=== PATIENT | female | born 1940 | race Caucasian/White ===

== ENCOUNTER 2016-12-17 15:56 | Inpatient (IN) ==
[2016-12-17] MEDS ORDERED: FUROSEMIDE 100 MG/10 ML VIAL IV STA (17:00)
[2016-12-17] MEDS ORDERED: methylPREDNISolone SOD SUC 125 MG/2 ML VIAL IV STA (17:00)
[2016-12-17] MEDS ORDERED: ALBUTEROL 2.5 MG/3 ML NEB RESP TX SCH (17:00)
--- NOTE | 2016-12-17 17:07 | Emergency Department Note ---
Norma Quintanilla Kasabria, am scribing for, and in the presence of, Jesse Mark MD 17:06. Jas Quintanilla Charles R, MD, personally performed the services described in this documentation, ascribed by Michelle Green in my presence, and it is both accurate and complete 707 . Arrival - Arrival Chief Complaint: Upper Respiratory Stated Complaint: breathing problem ED Nursing Triage Note: cough and congestion onset x 6 months Mode of Arrival: Ambulatory Limitations: No Limitations Source: Patient Time Seen by Provider: 12/17/16 16:51 - History of Present Illness HPI Narrative: This is a 76 y/o white female presenting to the ED with c/o cough, congestion, and SOB with exertion that onset with in the last few days. She states when she is laying flat at night she has to use pillows, pt is urinating more frequently , coughing makes her chest hurt, and auditory wheezing. She does not know if she has sleep apnea and is unaware of heart issues. She denies fever, chills, nausea, vomiting, diarrhea, abdominal pain, dysuria, and vision change. Consistency: constant Severity: moderate Date of Last Menstrual Period: hyster Allergies/Adverse Reactions: Allergies Allergy/AdvReac Type Severity Reaction Status Date / Time ciprofloxacin [From Cipro] Allergy RASH Verified 12/17/16 16:24 Home Medications: Home Medications Medication Instructions Recorded Confirmed Type Atorvastatin [Lipitor] 40 mg PO BEDTIME 12/17/16 12/17/16 History Levothyroxine Tab [Synthroid Tab] 75 mcg PO DAILY@0700 12/17/16 12/17/16 History Metoprolol Succinate Xl [Toprol Xl] 50 mg PO DAILY 12/17/16 12/17/16 History Omeprazole [Omeprazole] 20 mg PO DAILY 12/17/16 12/17/16 History Sertraline HCl [Sertraline HCl] 75 mg PO DAILY 12/17/16 12/17/16 History cloNIDine HCl [Clonidine HCl] 0.1 mg PO DAILY 12/17/16 12/17/16 History Review of System - Review of System 12 point system: reviewed and no additional remarkable complaints except as stated - Review of System Constitutional: Absent: chills, fever, weakness Eyes: Absent: vision change Head/Ears/Nose/Throat: Absent: nasal drainage Respiratory: Present: cough, wheezing Cardiovascular: Present: chest pain (after coughing ), dyspnea on exertion Gastrointestinal: Absent: abdominal pain, nausea, vomiting, diarrhea Genitourinary female: Present: frequency (at night she is using the bathroom more than usual ). Absent: dysuria Musculoskeletal: Absent: arm pain, back pain, leg pain, neck pain Skin: Absent: rash Neurological: Absent: headache, weakness, confusion, vertigo Psychiatric: Absent: anxiety Endocrine: Absent: fatigue Hematological/Lymphatic: Absent: easy bleeding Allergic/Immunologic: Absent: facial swelling Medical,Surgical,& Family Hx - Medical History Cardio: History of: Hypertension Gastrointestinal: History of: GERD - Social History Smoking Status: Never smoker Frequency of Alcohol Use: None Type of Drug Use: None Exam Vital Signs: Vital Signs Temperature 97.5 F L 12/17/16 16:47 Pulse Rate 106 H 12/17/16 18:45 Respiratory Rate 20 12/17/16 18:45 Blood Pressure 176/73 12/17/16 18:45 O2 Sat by Pulse Oximetry 95 12/17/16 18:45 - General General appearance: alert, in no apparent distress - Head Head exam: Present: atraumatic, normocephalic, normal inspection - Eye Eye exam: Present: normal appearance, PERRL, EOMI - ENT ENT exam: Present: normal exam, normal oropharynx, mucous membranes moist, TM's normal bilaterally, normal external ear exam - Neck Neck exam: Present: normal inspection, full ROM, trachea midline. Absent: tenderness - Chest Chest inspection: Present: normal inspection, symmetric chest wall rise. Absent : tenderness - Respiratory Respiratory exam: Present: rales (at the base ), wheezes (bilaterally ). Absent : normal lung sounds bilaterally - Cardiovascular Cardiovascular exam: Present: regular rate, normal rhythm, normal heart sounds - Abdominal Exam Abdominal exam: Present: soft, normal bowel sounds. Absent: distention, tenderness - Extremities Exam Extremities exam: Present: full ROM, normal capillary refill, pedal edema (+1 edema BLE ). Absent: normal inspection, tenderness, calf tenderness - Back Exam Back exam: Present: normal inspection, full ROM. Absent: tenderness - Neurological Exam Neurological exam: Present: alert, oriented X3, CN II-XII intact, normal gait, reflexes normal - Psychiatric Psychiatric exam: Present: normal affect, normal mood - Skin Skin exam: Present: warm, dry, intact, normal color. Absent: rash, diaphoresis Course - Reevaluation(s) Reevaluation #1: Patient feels much better. She still wheezing. CT scan showed no PE but COPD like picture Time: 19:58 - Consultations Consultation #1: Dr Maldonado will admit for Dr Mobley Time: 19:58 Results - Labs CBC & BMP: 12/17/16 17:00 12/17/16 17:00 Lab Results: I have reviewed the patients labs Disposition Clinical Impression: Upper respiratory infection, Bronchitis, Bronchospasm Case discussed with: patient, patient's family Disposition: Still a Patient Condition: Stable Time of Disposition: 19:59
[2016-12-17 17:12] LABS: Basophils # 0.1 10*3/uL (0.0-0.2); Basophils % 0.6 % (0.0-0.8); Eosinophils # 0.2 10*3/uL (0.0-0.87); Eosinophils % 2.8 % (0.00-10.9); Hematocrit 37.9 VOL% (35.7-47.0); Hemoglobin 12.3 GM/DL (12.0-16.0); Immature Granulocytes % 0.2 %; Immature Granulocytes Absolute 0.02 #; Lymphocytes # 2.2 10*3/uL (1.4-4.0); Lymphocytes % 25.6 % (21.3-54.2); Mean Corpuscular HGB Conc 32.5 GM/DL (32-36); Mean Corpuscular Hemoglobin 29 PG (27-34); Mean Corpuscular Volume 90.5 FL (87-102); Mean Platelet Volume 9.8 FL (9.6-12.0); Monocytes # 0.5 10*3/uL (0.11-0.8); Neutrophils # 5.5 10*3/uL (1.4-7.4); Neutrophils % 64.8 % (38.7-73.9); Platelet Count 250 T/CUMM (130-400); Red Blood Count 4.19 MC/CUMM (3.8-5.5); Red Cell Distribution Width 13.2 % (9.3-17.3); White Blood Count 8.5 T/CUMM (4-12)
[2016-12-17] MEDS ORDERED: methylPREDNISolone SOD SUC 125 MG/2 ML VIAL ONE (17:15)
[2016-12-17] MEDS ORDERED: FUROSEMIDE 100 MG/10 ML VIAL ONE (17:15)
[2016-12-17 17:23] LABS: D-Dimer 0.8 MG/L FEU; PT Patient Result 10.6 SECS
[2016-12-17 17:32] LABS: Apearance,Urine CLEAR (Clear); Bacteria,Urine Occasional /HPF (Few); Bilirubin,Urine Negative (Negative); Blood, Urine Negative (Negative); Glucose,Urine (UA) Negative (Negative); Ketones,Urine 5 mg/dL (Negative); Mucus,Urine Occasional /LPF (Occasional); Nitrite,Urine Negative (Negative); Protein,Urine Negative; RBC,Urine <1 /HPF (0-4); Squamous Epithelial Cell,Urine Occasional /HPF (0-10); Urine Color Yellow (Yellow); Urine Urobilinogen < 2.0 EU/DL (0.2-1.0); WBC,Urine 2 /HPF (0-6)
[2016-12-17 17:38] LABS: Alanine Aminotransferase 32 U/L (13-56); Albumin 3.9 G/DL (3.4-5.0); Alkaline Phosphatase 94 U/L (45-117); Aspartate Amino Transferase 27 U/L (0-37); Blood Urea Nitrogen 17 MG/DL (7-18); Calcium 9.6 MG/DL (8.5-10.1); Glucose 87 MG/DL (74-106); Magnesium 2.4 MG/DL (1.8-2.4); Osmolality,Calculated 277.5 MOS/KG (273-304); Potassium 4.1 MMOL/L (3.5-5.1); Sodium 139 MMOL/L (136-145); Total Protein 7.6 G/DL (6.4-8.3); Troponin I Only < 0.015 NG/ML (0.00-0.045)
--- NOTE | 2016-12-17 17:40 | EKG Report ---
Stationary ECG Study [facility] ER Test Date: 12/17/2016 5:39 PM Pat Name: JAMI ROSA Department: Room: 239 Gender: F Application Administrator: PRINCE : 1940 Requested by: Jesse Marcelo Order Number: [id number] Reading MD: JHOAN MIRANDA Intervals [place] Rate: 69 P: 59 MA: 142 QRS: -19 QRSD: 87 T: 1 QT: 402 QTc: 422 Interpretive Statements SINUS RHYTHM MINIMAL Electronically Signed On 12-21-16 12:00:41 CDT by JHOAN MIRANDA [email or web address]
--- NOTE | 2016-12-17 18:57 | CT Report ---
Exam: CT chest with contrast, PE study Date: 12/17/2016 Comparison: None Reason: Shortness of breath Technique: Axial images of the chest were obtained after administration of 80 cc of IV Omnipaque 350 intravenous contrast. Coronal reformatted images were also acquired. The study was performed per pulmonary embolism protocol. Total DLP: 233.90 Findings: There is no evidence of pulmonary embolism through the segmental pulmonary arteries. The heart is normal in size with cardiac fat pads and coronary artery calcifications. No evidence of aortic dissection with diffuse arterial calcifications. No chest lymphadenopathy is identified. 51 mm hiatal hernia. Degenerative changes are noted. The lungs are hyperexpanded with probable minimal chronic scarring. Minimal atelectasis especially in the lingula. Impression: No evidence of pulmonary embolism. The lungs are over expanded which can be seen with COPD or reactive airway disease with probable minimal chronic scarring and atelectasis. Cardiac fat pads with coronary artery calcifications. 51 mm hiatal hernia. This CT exam was performed using one or more the following dose reduction techniques: Automated exposure control, adjustment of the MA and/or KV according to patient size, or use of iterative reconstruction technique. PROCEDURE INTERPRETED AT [facility] DEPARTMENT OF RADIOLOGY Final Report Signed by: Dr. Mary Miller
[2016-12-17] MEDS ORDERED: cefTRIAXone 1,000 MG in SODIUM CHLORIDE 0.9% 100 ML IV STA (19:59)
[2016-12-17] MEDS ORDERED: cefTRIAXone 1,000 MG VIAL ONE (20:06)
[2016-12-17] MEDS ORDERED: ONDANSETRON 4 MG/2 ML VIAL IV PRN (21:28)
[2016-12-17] MEDS ORDERED: ACETAMINOPHEN 325 MG TABLET PO PRN (21:28)
[2016-12-17] MEDS ORDERED: ALBUTEROL/IPRATROPIUM 3 ML NEB RESP TX PRN (21:28)
[2016-12-17] MEDS ORDERED: MORPHINE 2 MG/1 ML SYRINGE IV PRN (21:28)
[2016-12-17] MEDS: DOCUSATE SODIUM 100 MG CAPSULE PO SCH (22:52)
[2016-12-18] MEDS: ATORVASTATIN 40 MG TABLET PO SCH ×2 (01:47→20:36)
[2016-12-18] MEDS: methylPREDNISolone SOD SUC 40 MG/1 ML VIAL IV SCH ×2 (01:48→10:21)
[2016-12-18] MEDS: SODIUM CHLORIDE 0.9% 1,000 ML IV SCH ×2 (01:48→16:26)
[2016-12-18 03:40] LABS: Basophils % 0.2 % (0.0-0.8); Hematocrit 35.8 VOL% (35.7-47.0); Hemoglobin 11.9 GM/DL (12.0-16.0); Immature Granulocytes % 0.6 %; Immature Granulocytes Absolute 0.03 #; Lymphocytes # 0.5 10*3/uL (1.4-4.0); Lymphocytes % 10.7 % (21.3-54.2); Mean Corpuscular HGB Conc 33.2 GM/DL (32-36); Mean Corpuscular Hemoglobin 29 PG (27-34); Mean Corpuscular Volume 87.3 FL (87-102); Mean Platelet Volume 10.1 FL (9.6-12.0); Monocytes # 0.1 10*3/uL (0.11-0.8); Neutrophils # 4.4 10*3/uL (1.4-7.4); Neutrophils % 87.5 % (38.7-73.9); Platelet Count 236 T/CUMM (130-400); Red Cell Distribution Width 13.3 % (9.3-17.3); White Blood Count 5.1 T/CUMM (4-12)
[2016-12-18 04:13] LABS: Albumin 3.8 G/DL (3.4-5.0); Bilirubin,Total 1.2 MG/DL (0.2-1.0); Calcium 9.2 MG/DL (8.5-10.1); Magnesium 2.3 MG/DL (1.8-2.4); Osmolality,Calculated 287.3 MOS/KG (273-304); Potassium 4.3 MMOL/L (3.5-5.1); Total Protein 6.8 G/DL (6.4-8.3)
[2016-12-18] MEDS: LEVOTHYROXINE 75 MCG TABLET PO SCH (06:20)
--- NOTE | 2016-12-18 07:26 | XRay Report ---
XR chest 2V Indication: Shortness of breath Comparison: 09 December 2012 Findings: The heart and mediastinum are normal in size and configuration. The pulmonary vascularity is normal in caliber. Lung volumes are increased with prominent bronchial markings. No lung infiltrates, effusions, pneumothorax or other abnormality is demonstrated. Impression: Chronic lung changes. No acute process or significant change. PROCEDURE INTERPRETED AT [facility] DEPARTMENT OF RADIOLOGY Final Report Signed by: Dr. Jamar Baltazar
--- NOTE | 2016-12-18 08:26 | Pulmonology Consult Note ---
Assessment and Plan (1) Acute bronchitis Status: Acute Assessment and plan: She has had a cough that is going on for little over 2 weeks. I am concerned that it may be aggravated by reflux or microaspiration. Will treat with low- dose steroids and bronchodilators as well as antibiotics. Should have EGD at some point. Current Visit: Yes (2) Hiatal hernia Status: Acute Assessment and plan: Has a good bit of problems with difficulty swallowing and with heartburn. May be having microaspiration. When her bronchospasm is improved she should have EGD to evaluate. Current Visit: Yes (3) Gastroesophageal reflux disease Status: Acute Assessment and plan: Patient is on Prilosec. Would keep her on something of that nature for now and have GI to see. Current Visit: Yes (4) Hypothyroidism Status: Acute Assessment and plan: Continuing Synthroid. Check TSH. Current Visit: Yes (5) Hypertension, essential Status: Acute Assessment and plan: Blood pressure well controlled on current medications. She is on a beta- timothy. Current Visit: Yes History of Present Illness Chief complaint: Cough, congestion, difficulty swallowing History of present illness: Ms. Del Real is a 76 year old female who smoked until she was 29 years old but has been off cigarettes now for 47 years. She does not have any history of chronic lung problems. She has over the last couple weeks had a cough and congestion and it got worse overnight. She went to the emergency room and was admitted. She is short of breath with exertion which is gotten worse the last few days as well. She has a good bit of problem with indigestion and has some difficulty swallowing. She feels like pills get caught up in her esophagus. She had a CT of the chest yesterday that showed a hiatal hernia. Her lungs were clear no evidence of a pulmonary embolus. She has not had any sinus symptoms. She has had no hemoptysis. Home Medications Medication Instructions Recorded Confirmed Type Atorvastatin [Lipitor] 40 mg PO BEDTIME 12/17/16 12/17/16 History Levothyroxine Tab [Synthroid Tab] 75 mcg PO DAILY@0700 12/17/16 12/17/16 History Metoprolol Succinate Xl [Toprol Xl] 50 mg PO DAILY 12/17/16 12/17/16 History Omeprazole [Omeprazole] 20 mg PO DAILY 12/17/16 12/17/16 History Sertraline HCl [Sertraline HCl] 75 mg PO DAILY 12/17/16 12/17/16 History cloNIDine HCl [Clonidine HCl] 0.1 mg PO DAILY 12/17/16 12/17/16 History Allergies Allergy/AdvReac Type Severity Reaction Status Date / Time ciprofloxacin [From Cipro] Allergy RASH Verified 12/17/16 16:24 12 point system: reviewed and no additional remarkable complaints except as stated - Cardiovascular Cardiovascular: Present: dyspnea on exertion - Respiratory Respiratory: Present: cough, dyspnea on exertion, wheezing - Gastrointestinal Gastrointestinal: Present: dyspepsia, dysphagia - Genitourinary Genitourinary: Present: urinary frequency Exam (Pulmonay) H&P - Constitutional Vitals: Period Temp Pulse Resp BP Sys/Bentley Pulse Ox Last 24 Hr 97.5 F-98.8 F 70-85 18-20 146-181/68-74 96-100 Exam: She is alert and oriented. Vital signs normal. Pupils react to light. Throat is clear. Neck supple no bruits. Chest reveals expiratory wheezing but she is not tight. Heart normal rate and rhythm no murmurs no rubs no gallops. Abdomen soft nontender no masses. Bowel sounds present. Extremities no clubbing cyanosis or edema. Calves nontender. Medical,Surgical,& Family Hx - Medical History Cardio: History of: Hypertension Gastrointestinal: History of: GERD - Surgical History Abdominal Surgeries: Surgical HX of: EGD (not sure when it was Dr. Mobley has records) - Family History Family History: Reports;: Family Cancer (grandmother), Family Diabetes ( mulitple member such as aunts), Family Heart Disease (father) Denies;: Family Anesthesia Reaction, Family Hematology, Family Hypertension, Family Psychiatric Problems, Family Stroke, Additional Family History - Social History Smoking Status: Never smoker Frequency of Alcohol Use: None Type of Drug Use: None Results - Labs CBC & BMP: 12/18/16 03:03 12/18/16 03:03 Lab Results: I have reviewed the past 24 hour labs - Diagnostic Findings Procedure: Chest x-ray: image reviewed by me (Chest x-ray is within normal limits.), CT - chest: image reviewed by me (Within normal limits except for large hiatal hernia)
[2016-12-18 09:06] LABS: Free T4 (Free Thyroxine) 1.3 NG/DL (0.76-1.46); Thyroid Stimulating Hormone 0.073 uIU/ml (0.358-3.74)
[2016-12-18] MEDS: cloNIDine 0.1 MG TABLET PO SCH (10:17)
[2016-12-18] MEDS: SERTRALINE 50 MG TABLET PO SCH (10:17)
[2016-12-18] MEDS: DOCUSATE SODIUM 100 MG CAPSULE PO SCH ×2 (10:17→20:36)
[2016-12-18] MEDS: PANTOPRAZOLE 40 MG TABLET PO SCH (10:19)
[2016-12-18] MEDS: METOPROLOL SUCCINATE XL 50 MG TABLET PO SCH (10:21)
[2016-12-18] MEDS: PANTOPRAZOLE 40 MG VIAL IV SCH (10:57)
--- NOTE | 2016-12-18 14:37 | Family Practice History&Phys ---
Assessment and Plan (1) Acute bronchitis Status: Acute Assessment and plan: We will admit and after appropriate cultures will start on empiric antibiotics, steroids, and respiratory treatments. This may be secondary to esophageal reflux with microaspiration. Current Visit: Yes (2) Bronchospasm Status: Acute Assessment and plan: We will start on appropriate respiratory treatments and IV steroids Current Visit: Yes (3) Probable esophageal stricture Status: Acute Assessment and plan: We will start on protein pump inhibitor and consult GI. Patient possibly had microaspiration and will probably need an EGD Current Visit: Yes (4) Gastroesophageal reflux disease Status: Chronic Assessment and plan: We will start on protein pump inhibitors and elevate head of bed Current Visit: Yes (5) Hypertension, essential Status: Chronic Assessment and plan: We will resume home medications Current Visit: Yes (6) Hypothyroidism Status: Chronic Assessment and plan: Stable at present we will resume home medications Current Visit: Yes History of Present Illness Chief complaint: Cough and shortness of breath History of present illness: Ms. Del Real is a 76 year old female Patient is a 76-year-old white female well known to me who was admitted to the emergency room with a 2 week history of progressive nonproductive cough and shortness of breath. Symptoms have progressively gotten worse. Patient is having to sleep on 2 pillows at night in order to breathe. Patient states that she has had problems with swallowing and food hanging in her lower esophagus over the last 2-3 weeks. Thinks she had a esophageal stricture in the past. No history of any pulmonary disease. No previous similar history of respiratory problem. Patient was seen in the emergency room and noted to have significant wheezing in the lung avila bilaterally. Chest x-ray was unremarkable. CT scan of the chest was also unremarkable no signs of pulmonary embolus. In view of degree of symptoms she was admitted for further evaluation and therapy Home Medications Medication Instructions Recorded Confirmed Type Atorvastatin [Lipitor] 40 mg PO BEDTIME 12/17/16 12/17/16 History Levothyroxine Tab [Synthroid Tab] 75 mcg PO DAILY@0700 12/17/16 12/17/16 History Metoprolol Succinate Xl [Toprol Xl] 50 mg PO DAILY 12/17/16 12/17/16 History Omeprazole [Omeprazole] 20 mg PO DAILY 12/17/16 12/17/16 History Sertraline HCl [Sertraline HCl] 75 mg PO DAILY 12/17/16 12/17/16 History cloNIDine HCl [Clonidine HCl] 0.1 mg PO DAILY 12/17/16 12/17/16 History Allergies Allergy/AdvReac Type Severity Reaction Status Date / Time ciprofloxacin [From Cipro] Allergy RASH Verified 12/17/16 16:24 Medical,Surgical,& Family Hx - Medical History Cardio: History of: Hypertension Endocrine: History of: Dyslipidemia, Thyroid Disorder (Hypothyroidism) Gastrointestinal: History of: GERD - Surgical History Abdominal Surgeries: Surgical HX of: EGD (not sure when it was Dr. Mobley has records) - Family History Family History: Reports;: Family Cancer (grandmother), Family Diabetes ( mulitple member such as aunts), Family Heart Disease (father) Denies;: Family Anesthesia Reaction, Family Hematology, Family Hypertension, Family Psychiatric Problems, Family Stroke, Additional Family History - Social History Smoking Status: Never smoker Frequency of Alcohol Use: None Type of Drug Use: None Marital Status: Lives With:: Spouse Functional capacity: independent ambulation Exam - Constitutional Vitals: Period Temp Pulse Resp BP Sys/Bentley Pulse Ox Last 24 Hr 97.5 F-98.8 F 70-85 18-20 116-181/63-74 92-100 General appearance: mild distress - Head Head exam: Present: normal inspection - Eye Pupils: Present: TATYANA - ENT ENT exam: Present: normal exam - Neck Neck exam: Present: normal inspection - Respiratory Respiratory exam: Present: wheezes (Patient has diffuse wheezing in bases bilaterally) - Cardiovascular Cardiovascular exam: Present: regular rate and rhythm - GI/Abdominal GI/Abdominal exam: Present: normal bowel sounds, soft - Extremities Exam Extremities exam: Present: normal inspection - Back Exam Back exam: Present: normal inspection - Neurological Exam Neurological exam: Present: alert, oriented X3 - Psychiatric Psychiatric exam: Present: normal affect - Skin Skin exam: Present: normal color Results - Labs CBC & BMP: 12/18/16 03:03 12/18/16 03:03
[2016-12-18] MEDS: methylPREDNISolone SOD SUC 125 MG/2 ML VIAL IV SCH ×2 (16:22→21:33)
[2016-12-19 02:54] LABS: Basophils % 0.1 % (0.0-0.8); Hemoglobin 11.3 GM/DL (12.0-16.0); Immature Granulocytes % 0.8 %; Immature Granulocytes Absolute 0.09 #; Lymphocytes # 0.7 10*3/uL (1.4-4.0); Mean Corpuscular HGB Conc 33.2 GM/DL (32-36); Mean Corpuscular Hemoglobin 30 PG (27-34); Mean Corpuscular Volume 89.5 FL (87-102); Mean Platelet Volume 10.4 FL (9.6-12.0); Monocytes # 0.1 10*3/uL (0.11-0.8); Monocytes % 0.7 % (1.7-12.7); Neutrophils # 10.8 10*3/uL (1.4-7.4); Neutrophils % 92.4 % (38.7-73.9); Platelet Count 229 T/CUMM (130-400); Red Cell Distribution Width 13.5 % (9.3-17.3); White Blood Count 11.7 T/CUMM (4-12)
[2016-12-19 03:27] LABS: Calcium 8.7 MG/DL (8.5-10.1); Free T4 (Free Thyroxine) 1.16 NG/DL (0.76-1.46); Osmolality,Calculated 291.3 MOS/KG (273-304); Potassium 4.4 MMOL/L (3.5-5.1); Thyroid Stimulating Hormone 0.038 uIU/ml (0.358-3.74)
[2016-12-19 03:45] LABS: Lymphocytes 8 % (20-55); Platelet Estimate Normal; Segmented Neutrophils 92 % (50-85); Total Cells Counted 100
[2016-12-19] MEDS: methylPREDNISolone SOD SUC 125 MG/2 ML VIAL IV SCH ×3 (06:32→23:17)
[2016-12-19] MEDS: SODIUM CHLORIDE 0.9% 1,000 ML IV SCH ×2 (06:32→19:10)
[2016-12-19] MEDS: LEVOTHYROXINE 75 MCG TABLET PO SCH (06:33)
[2016-12-19] MEDS: ALBUTEROL/IPRATROPIUM 3 ML NEB RESP TX SCH ×3 (07:24→20:34)
--- NOTE | 2016-12-19 07:55 | Family Practice Progress Note ---
Family Practice - PN: Subj Interval history: Patient came in with bronchitis and wheezing, on 12/17/2016. She is still having significant wheezing at this time although she is alert and oriented is able to talk to me and is in no acute respiratory distress. Oxygen sats this morning are 93%. Her weight is stable since admit. We did do a CBC which was grossly normal and a chemistry which was normal as well except for slight elevation of BUN. Patient does have paroxysmal bronchospasms but again is in no respiratory distress. I am going to increase her duo nebs to every 6 hours and as needed. Will change steroid dosing accordingly Exam (Progress Note) - Constitutional Vitals: Period Temp Pulse Resp BP Sys/Bentley Pulse Ox Last 24 Hr 98.1 F-99.2 F 64-82 18-20 116-181/62-90 92-95 Results - Labs CBC & BMP: 12/19/16 02:32 12/19/16 02:32
--- NOTE | 2016-12-19 08:51 | Gastrointestinal Consult Note ---
Assessment and Plan - Time spent with patient Time spent with patient: Greater than 30 minutes (1) Dysphagia Status: Acute Current Visit: Yes (2) Other specified counseling Status: Acute Current Visit: Yes History of Present Illness History of present illness: Ms. Del Real is a 76 year old female Home Medications Medication Instructions Recorded Confirmed Type Atorvastatin [Lipitor] 40 mg PO BEDTIME 12/17/16 12/17/16 History Levothyroxine Tab [Synthroid Tab] 75 mcg PO DAILY@0700 12/17/16 12/17/16 History Metoprolol Succinate Xl [Toprol Xl] 50 mg PO DAILY 12/17/16 12/17/16 History Omeprazole [Omeprazole] 20 mg PO DAILY 12/17/16 12/17/16 History Sertraline HCl [Sertraline HCl] 75 mg PO DAILY 12/17/16 12/17/16 History cloNIDine HCl [Clonidine HCl] 0.1 mg PO DAILY 12/17/16 12/17/16 History Allergies Allergy/AdvReac Type Severity Reaction Status Date / Time ciprofloxacin [From Cipro] Allergy RASH Verified 12/17/16 16:24 Medical,Surgical,& Family Hx - Medical History Cardio: History of: Hypertension Endocrine: History of: Dyslipidemia, Thyroid Disorder (Hypothyroidism) Gastrointestinal: History of: GERD - Surgical History Abdominal Surgeries: Surgical HX of: EGD (not sure when it was Dr. Mobley has records) - Family History Family History: Reports;: Family Cancer (grandmother), Family Diabetes ( mulitple member such as aunts), Family Heart Disease (father) Denies;: Family Anesthesia Reaction, Family Hematology, Family Hypertension, Family Psychiatric Problems, Family Stroke, Additional Family History - Social History Smoking Status: Never smoker Frequency of Alcohol Use: None Type of Drug Use: None Exam - Constitutional Vitals: Period Temp Pulse Resp BP Sys/Bentley Pulse Ox Last 24 Hr 98.1 F-99.2 F 64-82 18-20 137-181/62-90 93-95 Results - Labs CBC & BMP: 12/19/16 02:32 12/19/16 02:32 Note Addendum: PLEASE NOTE -- automatic citation of patient information is unavoidable in this electronic note. I have made a reasonable effort to review the information cited , but it is not a part of my evaluation, impression, or recommendation unless specifically discussed in the dictated text that follows. As well, voice recognition software was used in the creation of this clinical note. Reasonable effort was made to identify and correct gross errors. 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 If you encounter such an error, please contact me at [phone] for discussion and correction. -- Shawn Chief complaint: dysphagia History of present illness: this is a new patient, a 76-year-old female seen by consultation for evaluation of suspected esophageal obstruction. The family medicine service under the care of Dr. Mobley with a primary diagnosis of acute bronchitis. Patient was admitted through the emergency yesterday with primary complaint of progressive nonproductive cough and shortness of breath. At that time she also reportedly been "hanging up" in her esophagus for several weeks. She has a previous diagnosis of esophageal stricture which had been dilated in the past, about four or five years ago. She also has a diagnosis of esophageal reflux disease takes medication for treatment of this. Presently, she reports feeling better with respect to her breathing but continues to have the same dysphagia previously described. Patient denies fever, chills, night sweats, rigors, headache, dizziness, neck pain, visual changes, redness of the eyes, difficulty chewing, chest pain, weight loss, nausea, vomiting, regurgitation, hematemesis, diarrhea, hematochezia, melena, proctalgia, constipation, change in bowel pattern generally, dysuria, skin changes, temperature regulation issues, flushing, easy bleeding/bruising, musculoskeletal pain, mental status change, numbness/ weakness in the extremities, yellowing of the eyes/skin, cutaneous eruptions, family history of gastrointestinal cancer and colon polyps, and other complaints in general. Review of systems: 12 point review of systems was negative except as documented above. Outpatient medications: Lipitor, Synthroid, Toprol, Prilosec, sertraline, clonidine, Colace, Mucinex, Synthroid, Solu-Medrol, Toprol, morphine, Zofran, Protonix, sertraline, normal saline infusion Inpatient medications: Tylenol, Duoneb, Lipitor, clonidine, Colace, Mucinex, Synthroid, Solu-Medrol, Toprol, morphine, Zofran, Protonix, Past Medical History: hyperlipidemia, hypertension, hypothyroidism, gastroesophageal reflux disease Social history: negative tobacco. Negative alcohol Family history: no gastrointestinal cancers Physical examination: Vital Signs: Current vital signs reviewed and documented above. General Appearance: well-appearing. Not acutely ill. Head: Normocephalic. Neck: Palpation of the neck revealed no abnormalities. Eyes: No scleral icterus. No scleral injection. No conjunctival pallor. Oral Cavity: Odor of breath was normal. No drooling was observed. Lips showed no abnormalities. Floor of the mouth showed no abnormalities. Pharynx: Oropharynx was normal. Lungs: Respiration rhythm and depth was normal. Cardiovascular: Heart rate and rhythm were normal. No murmurs were appreciated. Abdomen: abdomen was not distended. Abdominal palpation revealed no tenderness and no hepatosplenomegaly. Ascites was not discovered. Abdominal auscultation revealed positive bowel sounds. Musculoskeletal System: Musculoskeletal system was grossly normal. Neurological: level of consciousness was normal. Speech was normal. Skin: General appearance was normal. Color and pigmentation were normal. No skin lesions. Laboratory: white blood count 11.7, hemoglobin 11.3, hematocrit 34.0, platelets 10.4, INR 1.0, PT 10.6 Radiology: CT of the chest, December 17, 2016 -- no evidence of pulmonary embolism , evidence of chronic obstructive pulmonary disease Impressions: 1. Esophageal dysphagia -- the differential diagnosis includes highest earning, esophageal ring, other mechanical obstruction of the esophagus (including malignancy), esophageal dyskinesia, and oropharyngeal dysphagia. I recommend a soft diet for now with aspiration precautions. We will plan upper endoscopy with dilation as indicated, likely Wednesday. I recommend continued proton pump inhibitor. 2. Other specified counseling: The patient was seen for 60 minutes. The patient was counseled for greater than 50% of this time regarding differential diagnosis, likely diagnosis, diagnostic and therapeutic alternatives, risks/ benefits/alternatives of medications and procedures, and plan of care generally. The patient expressed understanding and wishes to proceed. Recommendations: -- continue proton pump inhibitor -- continued intravenous resuscitation -- soft diet with aspiration precautions -- upper endoscopy with esophageal dilation as indicated, likely Wednesday -- thank you for this consultation. We will continue to follow with you.
[2016-12-19] MEDS: SERTRALINE 50 MG TABLET PO SCH (10:13)
[2016-12-19] MEDS: DOCUSATE SODIUM 100 MG CAPSULE PO SCH ×2 (10:13→23:17)
[2016-12-19] MEDS: PANTOPRAZOLE 40 MG TABLET PO SCH (10:14)
[2016-12-19] MEDS: METOPROLOL SUCCINATE XL 50 MG TABLET PO SCH (10:15)
[2016-12-19] MEDS: cloNIDine 0.1 MG TABLET PO SCH (10:16)
[2016-12-19] MEDS: PANTOPRAZOLE 40 MG VIAL IV SCH (10:16)
--- NOTE | 2016-12-19 18:48 | Pulmonology Progress Note ---
Pulmonary - PN: Subj Interval history: 76-year-old female admitted for difficulty breathing and dysphasia. Patient denies any acute events or changes overnight. She continues to have improvement in her breathing with current therapies. Patient seen by GI this morning with plans for EGD and possible esophageal dilation on Wednesday. Exam (Progress Note) - Constitutional Vitals: Period Temp Pulse Resp BP Sys/Bentley Pulse Ox Last 24 Hr 97.8 F-99.2 F 60-78 16-24 128-180/63-90 93-99 General appearance: over weight - Head Head exam: Present: normal inspection - Eye Eye exam: Present: EOMI Pupils: Present: TATYANA - Neck Neck exam: Present: normal inspection - Respiratory Respiratory exam: Present: rhonchi (Scattered). Absent: accessory muscle use, rales, wheezes - Cardiovascular Cardiovascular exam: Present: regular rate and rhythm - GI/Abdominal GI/Abdominal exam: Present: normal bowel sounds, soft. Absent: tenderness - Extremities Exam Extremities exam: Present: normal inspection. Absent: edema - Neurological Exam Neurological exam: Present: alert, oriented X3, CN II-XII intact. Absent: motor sensory deficit - Psychiatric Psychiatric exam: Present: normal affect - Skin Skin exam: Present: warm, dry Results - Labs CBC & BMP: 12/19/16 02:32 12/19/16 02:32 Assessment and Plan (1) Acute bronchitis Status: Acute Assessment and plan: Improving. Continue current therapies with steroids and bronchodilators. If patient having difficulty with expectoration could add CPT/Acapella. Can discontinue IV fluids as patient is eating drinking well Current Visit: Yes (2) Probable esophageal stricture Status: Acute Assessment and plan: Defer to GI. Plans for EGD on Wednesday. Current Visit: Yes
[2016-12-19] MEDS: ATORVASTATIN 40 MG TABLET PO SCH (23:17)
[2016-12-20] MEDS: ALBUTEROL/IPRATROPIUM 3 ML NEB RESP TX SCH ×4 (00:28→19:20)
[2016-12-20 05:20] LABS: Calcium 8.5 MG/DL (8.5-10.1); Osmolality,Calculated 291.1 MOS/KG (273-304); Potassium 3.9 MMOL/L (3.5-5.1)
[2016-12-20] MEDS: LEVOTHYROXINE 75 MCG TABLET PO SCH (08:00)
[2016-12-20] MEDS: methylPREDNISolone SOD SUC 125 MG/2 ML VIAL IV SCH ×3 (08:00→22:49)
[2016-12-20] MEDS: METOPROLOL SUCCINATE XL 50 MG TABLET PO SCH (08:01)
[2016-12-20] MEDS: DOCUSATE SODIUM 100 MG CAPSULE PO SCH ×2 (08:01→22:51)
[2016-12-20] MEDS: SERTRALINE 50 MG TABLET PO SCH (08:01)
[2016-12-20] MEDS: cloNIDine 0.1 MG TABLET PO SCH (08:01)
[2016-12-20] MEDS: PANTOPRAZOLE 40 MG VIAL IV SCH (08:02)
--- NOTE | 2016-12-20 09:04 | Family Practice Progress Note ---
Family Practice - PN: Subj Interval history: Patient seen this morning. She is slowly improving from a pulmonary standpoint. Still has some wheezing however and paroxysmal bronchospasms. Continue to be followed by pulmonary and appreciate their assistance. She is scheduled for possible EGD tomorrow Exam (Progress Note) - Constitutional Vitals: Period Temp Pulse Resp BP Sys/Bentley Pulse Ox Last 24 Hr 96.9 F-98.5 F 53-75 16-24 128-169/64-75 93-99 Exam: Stable at this time no acute distress Neck is supple trachea midline Cardiovascular regular 1/6 systolic ejection murmur Lungs clear except for some mild wheezes. Abdomen soft nondistended Results - Labs CBC & BMP: 12/19/16 02:32 12/20/16 04:22
[2016-12-20] MEDS: PANTOPRAZOLE 40 MG TABLET PO SCH (10:13)
--- NOTE | 2016-12-20 12:15 | XRay Report ---
History: Wheezing Date: 12/20/2016 Study: Chest x-ray PA lateral Comparison exam: Chest x-ray December 18, 2016 The cardiac silhouette is upper normal in size. There is no mediastinal mass. The pulmonary vasculature is not engorged. The lungs are well-expanded and clear. There is no pleural effusion. There is mild osteopenia and mild thoracic spondylosis. Impression: No adverse interval change compared to the previous study PROCEDURE INTERPRETED AT [facility] DEPARTMENT OF RADIOLOGY Final Report Signed by: Dr. Tika Bateman
[2016-12-20] MEDS: SODIUM CHLORIDE 0.9% 1,000 ML IV SCH (13:37)
[2016-12-20] MEDS: ATORVASTATIN 40 MG TABLET PO SCH (22:51)
[2016-12-21] MEDS: ALBUTEROL/IPRATROPIUM 3 ML NEB RESP TX SCH ×4 (05:31→19:36)
[2016-12-21] MEDS: methylPREDNISolone SOD SUC 125 MG/2 ML VIAL IV SCH (07:55)
[2016-12-21] MEDS: LEVOTHYROXINE 75 MCG TABLET PO SCH (08:00)
--- NOTE | 2016-12-21 08:05 | Pulmonology Progress Note ---
Pulmonary - PN: Subj Interval history: This is a 76-year-old white female came in with acute bronchitis. She is having some difficulty swallowing and were concerned about possible aspiration. Her bronchospasm is improved. Should be ready for EGD this morning. Exam (Progress Note) - Constitutional Vitals: Period Temp Pulse Resp BP Sys/Bentley Pulse Ox Last 24 Hr 97.1 F-98.2 F 52-78 16-20 150-162/69-84 93-100 Exam: She is alert oriented. Vital signs normal. Pupils react to light. Throat is clear. Neck supple no bruits. Chest reveals prolonged expiratory phase with minimal expiratory wheezes. Heart normal rate rhythm no murmurs. Abdomen soft nontender no masses. Bowel sounds present. Extremities no clubbing cyanosis edema. Calves nontender. Results - Labs CBC & BMP: 12/19/16 02:32 12/20/16 04:22 Lab Results: I have reviewed the past 24 hour labs - Diagnostic Findings Procedure: Chest x-ray: image reviewed by me (Yesterday's chest x-ray is within normal limits. ) Assessment and Plan (1) Acute bronchitis Status: Acute Assessment and plan: She has had a cough that is going on for little over 2 weeks. I am concerned that it may be aggravated by reflux or microaspiration. Will treat with low- dose steroids and bronchodilators as well as antibiotics. Should have EGD at some point. 12/21/2016 Symptoms improved. Added Rocephin. Current Visit: Yes (2) Hiatal hernia Status: Acute Assessment and plan: Has a good bit of problems with difficulty swallowing and with heartburn. May be having microaspiration. When her bronchospasm is improved she should have EGD to evaluate. 12/21/2016 being set up for EGD. This can be done today. She seems improved and stable for that. Current Visit: Yes (3) Gastroesophageal reflux disease Status: Chronic Assessment and plan: Patient is on Prilosec. Would keep her on something of that nature for now and have GI to see. 12/21/2016 symptoms are little better. Current Visit: Yes (4) Hypothyroidism Status: Chronic Assessment and plan: Continuing Synthroid. Check TSH. 12/21/2016 continuing Synthroid. TSH is low but free T4 is normal. Current Visit: Yes (5) Hypertension, essential Status: Chronic Assessment and plan: Blood pressure well controlled on current medications. She is on a beta- timothy. 12/21/2016 blood pressure well controlled with current medications. Current Visit: Yes
--- NOTE | 2016-12-21 08:37 | Family Practice Progress Note ---
Family Practice - PN: Subj Interval history: Patient states she feels better overall. Still has some cough and shortness of breath but is definitely improved. Still having some difficulty swallowing with food hanging in the lower esophagus. Reviewed lab and x-ray studies.. Patient scheduled for EGD this a.m.. Still has some wheezing in bases but definitely improved. Will review EGD results when available. Otherwise continue present therapy Exam (Progress Note) - Constitutional Vitals: Period Temp Pulse Resp BP Sys/Bentley Pulse Ox Last 24 Hr 97.1 F-98.2 F 52-78 16-20 150-162/69-84 93-100 Results - Labs CBC & BMP: 12/19/16 02:32 12/20/16 04:22 Assessment and Plan (1) Acute bronchitis Status: Acute Assessment and plan: We will admit and after appropriate cultures will start on empiric antibiotics, steroids, and respiratory treatments. This may be secondary to esophageal reflux with microaspiration. Current Visit: Yes (2) Bronchospasm Status: Acute Assessment and plan: We will start on appropriate respiratory treatments and IV steroids Current Visit: Yes (3) Probable esophageal stricture Status: Acute Assessment and plan: We will start on protein pump inhibitor and consult GI. Patient possibly had microaspiration and will probably need an EGD Current Visit: Yes (4) Gastroesophageal reflux disease Status: Chronic Assessment and plan: We will start on protein pump inhibitors and elevate head of bed Current Visit: Yes (5) Hypertension, essential Status: Chronic Assessment and plan: We will resume home medications Current Visit: Yes (6) Hypothyroidism Status: Chronic Assessment and plan: Stable at present we will resume home medications Current Visit: Yes
[2016-12-21] MEDS: cefTRIAXone 1,000 MG in SODIUM CHLORIDE 0.9% 100 ML IV SCH (08:54)
[2016-12-21] MEDS: cloNIDine 0.1 MG TABLET PO SCH ×2 (09:52→15:09)
[2016-12-21] MEDS: DOCUSATE SODIUM 100 MG CAPSULE PO SCH ×2 (09:53→20:44)
[2016-12-21] MEDS: PANTOPRAZOLE 40 MG TABLET PO SCH (09:54)
[2016-12-21] MEDS: METOPROLOL SUCCINATE XL 50 MG TABLET PO SCH ×2 (09:58→15:09)
[2016-12-21] MEDS: SERTRALINE 50 MG TABLET PO SCH ×2 (09:59→15:09)
[2016-12-21] MEDS: PANTOPRAZOLE 40 MG VIAL IV SCH (10:24)
--- NOTE | 2016-12-21 13:51 | History and Physical Update ---
History and Physical Update - Physical Exam Mental Status: alert and oriented Heart: regular rate and rhythm Lung: clear to auscultation Abdomen: within normal limits Vitals: within normal limits History and Physical Changes: 76-year-old female complains of recent dysphagia to solids.
--- NOTE | 2016-12-21 13:56 | Operative Note ---
Pre-op diagnosis: Dysphagia Procedure: Procedure: Esophagogastroduodenoscopy with bougie dilation esophagus Brief clinical abstract: Patient is a 76-year-old female who complains of dysphagia to solids. Her weight is stable. Indication for procedure: Dysphagia Endoscopic findings:[After informed consent was obtained, the patient was placed in the left lateral decubitus position. The gastroscope was inserted in the upper esophagus under direct vision with no resistance encountered. Esophageal mucosa appeared normal down to the squamocolumnar junction. There was a mildly obstructive fibrous appearing stricture at that level consistent with reflux etiology. No erosions or ulcerations were seen. A 2 cm long hiatal hernia was present just distal to this. The endoscope was advanced in the stomach which was carefully examined including retroflexed view of the cardia and fundus with no other abnormality seen. The pyloric channel, duodenal bulb, second and third portion of the duodenum were normal. The endoscope was withdrawn and Caceres dilator size 52 Setswana was inserted in the upper esophagus and advanced beyond the level of the GE junction with mild resistance encountered. No blood was noted on the dilator afterwards and she had no chest pain. She appeared to tolerate the procedure well. Impression: #1 distal esophageal stricture secondary to GERD 2. Small hiatal hernia Recommendations: Follow symptomatically after above. I will sign off. Please call if needed. Anesthesia: MAC Surgeon / Physician: Darryl Bateman Estimated blood loss: none Specimens: none sent Condition: stable Disposition: post procedure unit Results - Labs CBC & BMP: 12/19/16 02:32 12/20/16 04:22 Discharge Plan - Discharge Medications No Action Metoprolol Succinate Xl [Toprol Xl] 50 mg PO DAILY Sertraline HCl [Sertraline HCl] 75 mg PO DAILY Omeprazole [Omeprazole] 20 mg PO DAILY Atorvastatin [Lipitor] 40 mg PO BEDTIME cloNIDine HCl [Clonidine HCl] 0.1 mg PO DAILY Levothyroxine Tab [Synthroid Tab] 75 mcg PO DAILY@0700 - Follow Up or Referral - Forms/Instructions
[2016-12-21] MEDS ORDERED: LIDOCAINE 100 MG/5 ML SYRINGE ONE (13:57)
[2016-12-21] MEDS ORDERED: PROPOFOL 200 MG/20 ML VIAL IV ONE (13:57)
--- NOTE | 2016-12-21 14:01 | Anesthesia Post-Op ---
Anesthesia Post OP - Post Ansesthetic Evaluation Patient seen in post op: Yes Resp: within normal limits CV: within normal limits Mental: within normal limits Temp: within normal limits [id number]: within normal limits Nausea and Vomiting: within normal limits Pain: within normal limits
[2016-12-21] MEDS: ATORVASTATIN 40 MG TABLET PO SCH (20:44)
[2016-12-21] MEDS: methylPREDNISolone SOD SUC 40 MG/1 ML VIAL IV SCH (21:28)
[2016-12-22] MEDS: ALBUTEROL/IPRATROPIUM 3 ML NEB RESP TX SCH ×4 (00:18→18:50)
[2016-12-22] MEDS: LEVOTHYROXINE 75 MCG TABLET PO SCH (06:17)
--- NOTE | 2016-12-22 08:21 | Family Practice Progress Note ---
Family Practice - PN: Subj Interval history: Patient states that she feels better but is still having moderate productive cough with mostly clear sputum. States the cough is worse in the p.m. Tolerated EGD yesterday which revealed a stricture and was successfully dilated. Discussed this in detail with patient. A.m. vitals and labs are stable. Still has some wheezing in bases bilaterally appear. she has not been up and ambulating. Will have patient increase activity today and continue medications hopefully can discharge in a.m. Exam (Progress Note) - Constitutional Vitals: Period Temp Pulse Resp BP Sys/Bentley Pulse Ox Last 24 Hr 97.3 F-98.0 F 49-98 15-25 130-199/60-102 91-99 Results - Labs CBC & BMP: 12/19/16 02:32 12/20/16 04:22 Assessment and Plan (1) Acute bronchitis Status: Acute Assessment and plan: We will admit and after appropriate cultures will start on empiric antibiotics, steroids, and respiratory treatments. This may be secondary to esophageal reflux with microaspiration. Current Visit: Yes (2) Bronchospasm Status: Acute Assessment and plan: We will start on appropriate respiratory treatments and IV steroids Current Visit: Yes (3) Probable esophageal stricture Status: Acute Assessment and plan: We will start on protein pump inhibitor and consult GI. Patient possibly had microaspiration and will probably need an EGD Current Visit: Yes (4) Gastroesophageal reflux disease Status: Chronic Assessment and plan: We will start on protein pump inhibitors and elevate head of bed Current Visit: Yes (5) Hypertension, essential Status: Chronic Assessment and plan: We will resume home medications Current Visit: Yes (6) Hypothyroidism Status: Chronic Assessment and plan: Stable at present we will resume home medications Current Visit: Yes
[2016-12-22] MEDS: PANTOPRAZOLE 40 MG VIAL IV SCH (08:47)
[2016-12-22] MEDS: methylPREDNISolone SOD SUC 40 MG/1 ML VIAL IV SCH ×2 (08:47→21:49)
[2016-12-22] MEDS: METOPROLOL SUCCINATE XL 50 MG TABLET PO SCH (08:48)
[2016-12-22] MEDS: cloNIDine 0.1 MG TABLET PO SCH (08:48)
[2016-12-22] MEDS: SERTRALINE 50 MG TABLET PO SCH (08:48)
[2016-12-22] MEDS: cefTRIAXone 1,000 MG in SODIUM CHLORIDE 0.9% 100 ML IV SCH (08:48)
[2016-12-22] MEDS: DOCUSATE SODIUM 100 MG CAPSULE PO SCH ×2 (08:49→21:13)
[2016-12-22] MEDS: PANTOPRAZOLE 40 MG TABLET PO SCH (08:49)
--- NOTE | 2016-12-22 08:51 | Pulmonology Progress Note ---
Pulmonary - PN: Subj Interval history: This is a 76-year-old white female came in with acute bronchitis. She is having some difficulty swallowing and were concerned about possible aspiration. Her bronchospasm is improved. Should be ready for EGD this morning. 12/22/2016 patient had EGD with dilatation of esophageal stricture yesterday. She is feeling better swallowing better. She does need additional physical therapy. She has not been active as yet. Exam (Progress Note) - Constitutional Vitals: Period Temp Pulse Resp BP Sys/Bentley Pulse Ox Last 24 Hr 97.3 F-98.0 F 49-98 15-25 130-199/60-102 91-99 Exam: She is alert oriented. Vital signs normal. Pupils react to light. Throat is clear. Neck supple no bruits. Chest reveals prolonged expiratory phase with no wheezes. Heart normal rate rhythm no murmurs. Abdomen soft nontender no masses. Bowel sounds present. Extremities no clubbing cyanosis edema. Calves nontender. Results - Labs CBC & BMP: 12/19/16 02:32 12/20/16 04:22 Lab Results: I have reviewed the past 24 hour labs Assessment and Plan (1) Acute bronchitis Status: Acute Assessment and plan: She has had a cough that is going on for little over 2 weeks. I am concerned that it may be aggravated by reflux or microaspiration. Will treat with low- dose steroids and bronchodilators as well as antibiotics. Should have EGD at some point. 12/21/2016 Symptoms improved. Added Rocephin. 12/22/2016 symptoms are improved. Could change to oral antibiotics and discharge tomorrow probably. Current Visit: Yes (2) Hiatal hernia Status: Acute Assessment and plan: Has a good bit of problems with difficulty swallowing and with heartburn. May be having microaspiration. When her bronchospasm is improved she should have EGD to evaluate. 12/21/2016 being set up for EGD. This can be done today. She seems improved and stable for that. 12/22/2016 she has had an EGD with dilatation of esophageal stricture. Has a very small hiatal hernia which is inconsequential. Current Visit: Yes (3) Gastroesophageal reflux disease Status: Chronic Assessment and plan: Patient is on Prilosec. Would keep her on something of that nature for now and have GI to see. 12/21/2016 symptoms are little better. 12/22/2016 needs to be on PPI drugs for 2 or 3 months at least. Current Visit: Yes (4) Hypothyroidism Status: Chronic Assessment and plan: Continuing Synthroid. Check TSH. 12/21/2016 continuing Synthroid. TSH is low but free T4 is normal. Current Visit: Yes (5) Hypertension, essential Status: Chronic Assessment and plan: Blood pressure well controlled on current medications. She is on a beta- timothy. 12/21/2016 blood pressure well controlled with current medications. 517 systolic blood pressure around 150 which is acceptable. Probably this will come down with prednisone taper. Current Visit: Yes
[2016-12-22] MEDS: ATORVASTATIN 40 MG TABLET PO SCH (21:13)
[2016-12-23] MEDS: ALBUTEROL/IPRATROPIUM 3 ML NEB RESP TX SCH ×2 (00:22→08:05)
[2016-12-23] MEDS: LEVOTHYROXINE 75 MCG TABLET PO SCH (06:28)
--- NOTE | 2016-12-23 07:33 | Pulmonology Progress Note ---
Pulmonary - PN: Subj Interval history: This is a 76-year-old white female came in with acute bronchitis. She is having some difficulty swallowing and were concerned about possible aspiration. Her bronchospasm is improved. Should be ready for EGD this morning. 12/22/2016 patient had EGD with dilatation of esophageal stricture yesterday. She is feeling better swallowing better. She does need additional physical therapy. She has not been active as yet. 12/23/2016 patient feeling much better. Lungs are clear. Should be ready for discharge. Will need to continue with physical therapy post discharge. Exam (Progress Note) - Constitutional Vitals: Period Temp Pulse Resp BP Sys/Bentley Pulse Ox Last 24 Hr 97.2 F-98.3 F 51-61 17-20 146-186/59-82 92-99 Exam: She is alert oriented. Vital signs normal. Pupils react to light. Throat is clear. Neck supple no bruits. Chest reveals prolonged expiratory phase with no wheezes. Heart normal rate rhythm no murmurs. Abdomen soft nontender no masses. Bowel sounds present. Extremities no clubbing cyanosis edema. Calves nontender. Results - Labs CBC & BMP: 12/19/16 02:32 12/20/16 04:22 Lab Results: I have reviewed the past 24 hour labs Assessment and Plan (1) Acute bronchitis Status: Acute Assessment and plan: She has had a cough that is going on for little over 2 weeks. I am concerned that it may be aggravated by reflux or microaspiration. Will treat with low- dose steroids and bronchodilators as well as antibiotics. Should have EGD at some point. 12/21/2016 Symptoms improved. Added Rocephin. 12/22/2016 symptoms are improved. Could change to oral antibiotics and discharge tomorrow probably. 12/23/2016 bronchitis controlled. No active bronchospasm. Ready for discharge. Would keep on prednisone orally for about 5 more days. Current Visit: Yes (2) Hiatal hernia Status: Acute Assessment and plan: Has a good bit of problems with difficulty swallowing and with heartburn. May be having microaspiration. When her bronchospasm is improved she should have EGD to evaluate. 12/21/2016 being set up for EGD. This can be done today. She seems improved and stable for that. 12/22/2016 she has had an EGD with dilatation of esophageal stricture. Has a very small hiatal hernia which is inconsequential. Current Visit: Yes (3) Gastroesophageal reflux disease Status: Chronic Assessment and plan: Patient is on Prilosec. Would keep her on something of that nature for now and have GI to see. 12/21/2016 symptoms are little better. 12/22/2016 needs to be on PPI drugs for 2 or 3 months at least. 12/23/2016 reflux symptoms improved. Current Visit: Yes (4) Hypothyroidism Status: Chronic Assessment and plan: Continuing Synthroid. Check TSH. 12/21/2016 continuing Synthroid. TSH is low but free T4 is normal. Current Visit: Yes (5) Hypertension, essential Status: Chronic Assessment and plan: Blood pressure well controlled on current medications. She is on a beta- timothy. 12/21/2016 blood pressure well controlled with current medications. 12/22/16 systolic blood pressure around 150 which is acceptable. Probably this will come down with prednisone taper. 12/23/2016 blood pressures still a little high. Current Visit: Yes
--- NOTE | 2016-12-23 08:28 | Discharge Summary ---
Hospital Course - Hospital Course Hospital Course: Ms. Del Real is a 76 year old female Patient is a 76-year-old white female well known to me who was admitted to the emergency room with a 2 week history of progressive nonproductive cough and shortness of breath. Symptoms have progressively gotten worse. Patient is having to sleep on 2 pillows at night in order to breathe. Patient states that she has had problems with swallowing and food hanging in her lower esophagus over the last 2-3 weeks. Thinks she had a esophageal stricture in the past. No history of any pulmonary disease. No previous similar history of respiratory problem. Patient was seen in the emergency room and noted to have significant wheezing in the lung avila bilaterally. Chest x-ray was unremarkable. CT scan of the chest was also unremarkable no signs of pulmonary embolus. In view of degree of symptoms she was admitted for further evaluation and therapy HOSPITAL COURSE - patient was admitted to Hospital lab and x-ray studies obtained. After appropriate cultures obtained and started on antibiotics steroids and respiratory treatments. Patient initially slow showed a slow response to therapy. She was seen in consultation by Dr. Keys local pulmonary physician. Her respiratory status slowly continued to improve. The patient was complaining of food hang in her lower esophagus. In view of this she was seen in consultation by Dr. Bateman. In view of the degree of symptoms he elected to perform an EGD. The patient was found to have a distal esophageal stricture. The stricture was dilated and patient tolerated procedure well. Patient's GI symptoms resolved following the scope. Pulmonary status improved on a daily basis and she was much improved at time of discharge. We will discharge to home care and plan to continue present medications. We'll arrange follow-up appointment to the office. Will have her call or return to emergency room if condition worsens or new problems develop Diagnosis - Discharge Diagnosis (1) Acute bronchitis Status: Acute (2) Bronchospasm Status: Acute (3) esophageal stricture Status: Acute (4) Gastroesophageal reflux disease Status: Chronic (5) Hypertension, essential Status: Chronic (6) Hypothyroidism Status: Chronic Specialty Discharge - Follow Up or Referrals Follow up with: Sarkis Mobley DO [Physician] - 01/04/17 2:00 pm Discharge Plan - Discharge Data Disposition: Disch To Home/Self Care Condition at Discharge: Stable Discharge Diet: advance to your usual diet Activity: resume usual activities as tolerated Hygiene: no restrictions Weight Bearing at Discharge: full weight bearing Driving: no restrictions Contact your physician if you experience:: fever over 101, Shortness of breath - Discharge Medications New Cefuroxime Tab [Ceftin] 500 mg PO BID #20 tablet Continue Metoprolol Succinate Xl [Toprol Xl] 50 mg PO DAILY Sertraline HCl 75 mg PO DAILY Omeprazole 20 mg PO DAILY Atorvastatin [Lipitor] 40 mg PO BEDTIME cloNIDine HCl [Clonidine HCl] 0.1 mg PO DAILY Levothyroxine Tab [Synthroid Tab] 75 mcg PO DAILY@0700 - Follow Up or Referral Follow Up: Sarkis Mobley DO [Physician] - 01/04/17 2:00 pm - Forms/Instructions Exam - Constitutional Vitals: Period Temp Pulse Resp BP Sys/Bentley Pulse Ox Last 24 Hr 97.2 F-98.3 F 51-72 17-20 146-186/59-82 92-99 General appearance: no acute distress - Head Head exam: Present: normal inspection - Eye Pupils: Present: TATYANA - ENT ENT exam: Present: normal exam - Neck Neck exam: Present: normal inspection - Respiratory Respiratory exam: Present: clear to auscultation bilaterally - Cardiovascular Cardiovascular exam: Present: regular rate and rhythm - GI/Abdominal GI/Abdominal exam: Present: normal bowel sounds, soft - Extremities Exam Extremities exam: Present: normal inspection - Back Exam Back exam: Present: normal inspection - Neurological Exam Neurological exam: Present: alert, oriented X3 - Psychiatric Psychiatric exam: Present: normal affect - Skin Skin exam: Present: normal color DS: Provider Date of admission: 12/17/16 20:04 Primary care physician: . No PCP Attending physician on admission: Sarkis Mobley DO Consults: 12/17/16 21:28 Consult to Case Mgmt/Social Srvs [CONS] Routine Reason for Case Mgmt/Social Srvs: Discharge Planning Consult to Physician [CONS] Routine Comment: Bronchospasm Consulting Provider: Chun Keys When should Consulting Provider be notified: In am Person Notified: DIVINE Date Notified: 12/18/16 Time Notified: 09:01 Consult Notification Comment: [facility] [employer] SUPPORT AGENT 12/18/16 14:30 Consult to Physician [CONS] Routine Comment: Probable esophageal stricture Consulting Provider: Darryl Bateman When should Consulting Provider be notified: In am Consult Notification Comment: CALLED DR BATEMAN AT 1510 AND HE SAID LEAVE IT FOR DR RUELAS TO SEE THIS WEEKEND. RP Discharging clinician: Sarkis Mobley, DO
[2016-12-23] MEDS ORDERED: CEFUROXIME 500 MG TABLET PO SCH (09:00)
[2016-12-23] MEDS: SERTRALINE 50 MG TABLET PO SCH (09:30)
[2016-12-23] MEDS: DOCUSATE SODIUM 100 MG CAPSULE PO SCH (09:30)
[2016-12-23] MEDS: methylPREDNISolone SOD SUC 40 MG/1 ML VIAL IV SCH (09:31)
[2016-12-23] MEDS: cloNIDine 0.1 MG TABLET PO SCH (09:31)
[2016-12-23] MEDS: PANTOPRAZOLE 40 MG VIAL IV SCH (09:31)
[2016-12-23] MEDS: METOPROLOL SUCCINATE XL 50 MG TABLET PO SCH (09:31)
[2016-12-23] MEDS: cefTRIAXone 1,000 MG in SODIUM CHLORIDE 0.9% 100 ML IV SCH (09:32)
[2016-12-23] MEDS: PANTOPRAZOLE 40 MG TABLET PO SCH (09:32)
[2016-12-23 12:23] VITALS: BP 128/62
--- NOTE | 2016-12-28 16:00 | Physician Query Form ---
CLICK EDIT DOCUMENT TO SELECT QUERY ANSWER --> OK --> SIGN Zara Vaz RN Clinical Clinical Asst W) [phone] (f) [phone] [email or web address] PROVIDERS: Make your selection(s) from the choices in EACH section by typing an "x" and enter comments in the comment section. Please use your independent medical judgment in providing your response. This request does not imply that any particular answer is desired or expected. CLINICAL INDICATORS: (Providers should not edit this section) Based on documentation of "Acute bronchitis" "Concerned may be aggravated by reflux or microaspiration" "Acute GERD" "Acute dysphagia" "Concerned about possible aspiration " "Acute bronchospasm. This may be secondary to esophageal reflux with microaspiration." EGD showed "mildly obstructive fibrous appearing stricture at that level consistent with reflux etiology" Based on the above, could you clarify the appropriate diagnosis, if significant , that supports the above abnormalities and additional evaluation, monitoring, and/or treatment rendered: ( ) Acute Bronchitis due to aspiration ( ) Acute Bronchitis due to other cause, please specify: ( ) Other ( ) Clinically unable to determine COMMENTS: Use of terms such as suspected, likely, or probable (associated with a specific diagnosis that is being evaluated, monitored, or treated as if it exists) are acceptable and can be restated in the discharge summary if not ruled out. MTDD
== END 2016-12-23 12:03 | disposition home or self-care (01) | DRG 179 ==
LOC: N.ED 15:56 → N.EDINP 20:04 → N.2E 21:30
PROVIDERS: ADMIT Family Medicine; ATTEND Family Medicine